=== PATIENT | male | born 1960 | race Caucasian/White ===

== ENCOUNTER 2017-03-13 14:33 | Emergency (ER) | payer SELFPAY ==
[~2017-03-13] VITALS: Ht 180.3 cm; Wt 93.0 kg
[~2017-03-13 14:33] MED LIST: ANDRODERM4 MG/24 HR TD; CIPROFLOXACN500 MG PO; LIPITOR10 MG PO; SUBOXONE1 MI1 SL; TOPROL XL100 MG PO; ZOLOFT25 MG PO
[2017-03-13 15:06] LABS: HEMATOCRIT 47.3 % (39.0-50.0); HEMOGLOBIN 16.1 g/dl (14.0-18.0); IMMATURE GRANULOCYTES 0.4 % (0.0-1.0); MEAN CELL VOLUME 92.9 fL CALC (80.0-100.0); MEAN CORPUSCULAR HGB 31.6 pG CALC (26.0-32.0); NEUT# 4.06 thou/uL (1.82-7.42); RED BLOOD COUNT 5.09 mill/uL (4.70-6.10); RED CELL DISTRI WIDTH 11.7 % (11.5-15.5)
[2017-03-13 15:19] LABS: ALBUMIN 4.7 g/dL (3.2-5.0); ALKALINE PHOSPHATASE 96 u/l (38-126); AMYLASE 62 u/l (30-110); ANION GAP 16 (6-22 (CALC)); BILIRUBIN, TOTAL 0.8 mg/dL (0.0-1.4); BUN 20 mg/dL (9-20); BUN/CREATININE RATIO 22 (12-20 (CALC)); CALCIUM 9.5 mg/dL (8.4-10.2); CARBON DIOXIDE 23 mmol/l (22-30); CHLORIDE 104 mmol/l (95-108); CREATININE 0.9 mg/dL (0.7-1.3); GFR > 60 ML/MIN (>=60 (CALC)); GFR FOR AFR.AMER. > 60 ML/MIN (>=60 (CALC)); GLUCOSE 108 mg/dL (75-110); LIPASE 65 u/l (23-300); POTASSIUM 4.2 mmol/l (3.5-5.1); SGOT/AST 31 u/l (17-59); SGPT/ALT 30 u/l (21-72); SODIUM 138 mmol/l (137-146); TOTAL PROTEIN 7.8 g/dL (6.3-8.2)
[2017-03-13 15:30] LABS: MYOGLOBIN 72 ng/mL (0 - 121)
[2017-03-13 16:16] VITALS: BP 132/68
== END 2017-03-13 16:25 | disposition home or self-care (01) | DRG 392 ==
LOC: ED 14:33
PROVIDERS: Family Medicine
DX: R10.13 Epigastric pain (principal); R11.0 Nausea
CPT/HCPCS: Q9967

== ENCOUNTER 2018-12-07 16:49 | Observation (INO) | payer OTHER ==
[~2018-12-07] VITALS: Ht 180.3 cm; Wt 105.8 kg
[2018-12-07 17:21] LABS: HEMOGLOBIN 14.9 g/dl (14.0-18.0); IMMATURE GRANULOCYTES 1.2 % (0.0-5.0); MEAN CELL VOLUME 89.6 fL CALC (80.0-100.0); MEAN CORPUSCULAR HGB 29.7 pG CALC (26.0-32.0); MEAN CORPUSCULAR HGB CONC 33.1 g/L CALC (32.0-36.0); NEUT# 4.3 thou/uL (1.82-7.42); RED BLOOD COUNT 5.02 mill/uL (4.70-6.10); RED CELL DISTRI WIDTH 12.9 % (11.5-15.5)
[2018-12-07 17:41] LABS: ALBUMIN 5.1 g/dL (3.2-5.0); ALKALINE PHOSPHATASE 107 u/l (38-126); BUN 19 mg/dL (9-20); BUN/CREATININE RATIO 21 (12-20 (CALC)); C-REACTIVE PROTEIN < 0.5 mg/dL (0-0.9); CHLORIDE 98 mmol/l (95-108); CPK 82 u/l (52-200); CREATININE 0.9 mg/dL (0.7-1.3); GFR > 60 ML/MIN (>=60 (CALC)); GFR FOR AFR.AMER. > 60 ML/MIN (>=60 (CALC)); LIPASE 99 u/l (23-300); POTASSIUM 4.4 mmol/l (3.5-5.1); SGOT/AST 27 u/l (17-59); SODIUM 139 mmol/l (137-146); TOTAL PROTEIN 8.5 g/dL (6.3-8.2)
[2018-12-07 17:46] LABS: ANION GAP 15 (6-22 (CALC)); BILIRUBIN, TOTAL 0.3 mg/dL (0.0-1.4); CARBON DIOXIDE 30 mmol/l (22-30)
[2018-12-07 20:20] VITALS: BP 135/91
[2018-12-07 23:55] VITALS: BP 113/63
[2018-12-08 03:55] VITALS: BP 136/85
[2018-12-08 06:37] LABS: CHOLESTEROL HDL RATIO 5.2 (<4.4 (CALC)); MAGNESIUM 1.9 mg/dL (1.6-2.3)
[2018-12-08 08:48] VITALS: BP 127/64
[2018-12-08 11:10] VITALS: BP 139/83
== END 2018-12-08 15:50 | disposition home or self-care (01) | DRG 313 ==
LOC: ED 16:49 → ED-I 18:26 → ED 18:57 → MS2 18:58 → UNDODEPER 12-08 05:44 → MS2 12-08 15:50
PROVIDERS: Emergency Medicine; ADMIT Internal Medicine; ATTEND Internal Medicine
DX: R07.89 Other chest pain (principal); R53.83 Other fatigue; M19.90 Unspecified osteoarthritis, unspecified site; G89.29 Other chronic pain; M54.9 Dorsalgia, unspecified; F17.290 Nicotine dependence, other tobacco product, uncomplicated; Z79.891 Long term (current) use of opiate analgesic
CPT/HCPCS: G0378

== ENCOUNTER 2019-03-27 10:57 | Emergency (ER) | payer OTHER ==
[~2019-03-27] VITALS: Ht 180.3 cm; Wt 120.0 kg
[2019-03-27 11:22] LABS: URINE BILIRUBIN - DIPSTICK NEGATIVE (NEGATIVE); URINE BLOOD DIPSTICK NEGATIVE (NEGATIVE); URINE COLOR YELLOW; URINE GLUCOSE - DIPSTICK NEGATIVE (NEGATIVE); URINE KETONE NEGATIVE (NEGATIVE); URINE LEUK ESTERASE NEGATIVE (NEGATIVE); URINE NITRITE - DIPSTICK NEGATIVE (Negative); URINE PROTEIN - DIPSTICK NEGATIVE (NEG-TRACE); URINE UROBILINOGEN - DIPSTICK 0.2 E.U./dL (0.2)
[2019-03-27 11:26] LABS: HEMATOCRIT 50.3 % (39.0-50.0); HEMOGLOBIN 16.4 g/dl (14.0-18.0); IMMATURE GRANULOCYTES 0.6 % (0.0-5.0); MEAN CELL VOLUME 95.1 fL CALC (80.0-100.0); MEAN CORPUSCULAR HGB CONC 32.6 g/L CALC (32.0-36.0); NEUT# 4.99 thou/uL (1.82-7.42); RED BLOOD COUNT 5.29 mill/uL (4.70-6.10)
[2019-03-27 11:29] VITALS: BP 136/93
[2019-03-27 11:37] LABS: ALBUMIN 4.4 g/dL (3.2-5.0); ALKALINE PHOSPHATASE 84 u/l (38-126); ANION GAP 14 (6-22 (CALC)); BILIRUBIN, TOTAL 0.4 mg/dL (0.0-1.4); BUN 11 mg/dL (9-20); BUN/CREATININE RATIO 13 (12-20 (CALC)); CARBON DIOXIDE 29 mmol/l (22-30); CHLORIDE 99 mmol/l (95-108); CREATININE 0.8 mg/dL (0.7-1.3); GFR > 60 ML/MIN (>=60 (CALC)); GFR FOR AFR.AMER. > 60 ML/MIN (>=60 (CALC)); LIPASE 72 u/l (23-300); SGOT/AST 30 u/l (17-59); SODIUM 137 mmol/l (137-146); TOTAL PROTEIN 7.7 g/dL (6.3-8.2)
[2019-03-27 11:43] LABS: POTASSIUM 5.3 mmol/l (3.5-5.1)
[2019-03-27] MEDS ORDERED: TORADOL PO (12:29)
== END 2019-03-27 12:51 | disposition home or self-care (01) | DRG 552 ==
LOC: ED 10:57
PROVIDERS: Family Medicine
DX: M54.5 Low back pain (principal); N30.90 Cystitis, unspecified without hematuria

== ENCOUNTER 2021-10-27 16:52 | Emergency (ER) | payer OTHER ==
[2021-10-27] VITALS (9 sets, daily range): BP systolic 127–188; BP diastolic 56–113
[~2021-10-27] VITALS: Ht 180.3 cm; Wt 90.9 kg
[~2021-10-27 16:52] MED LIST changes: +TORADOL PO
[2021-10-27 17:35] LABS: HEMATOCRIT 52.2 % (39.0-50.0); HEMOGLOBIN 17.1 g/dl (14.0-18.0); IMMATURE GRANULOCYTES 0.3 % (0.0-5.0); MEAN CELL VOLUME 91.3 fL CALC (80.0-100.0); MEAN CORPUSCULAR HGB 29.9 pG CALC (26.0-32.0); MEAN CORPUSCULAR HGB CONC 32.8 g/dL CAL (32.0-36.0); NEUT# 5.72 thou/uL (1.82-7.42); RED BLOOD COUNT 5.72 mill/uL (4.70-6.10); RED CELL DISTRI WIDTH 12.1 % (11.5-15.5)
[2021-10-27 17:49] LABS: ALBUMIN 4.9 g/dL (3.2-5.0); ALKALINE PHOSPHATASE 124 u/l (38-126); BILIRUBIN, TOTAL 0.4 mg/dL (0.0-1.4); BUN 15 mg/dL (9-20); BUN/CREATININE RATIO 19 (12-20 (CALC)); CARBON DIOXIDE 27 mmol/l (22-30); CHLORIDE 98 mmol/l (95-108); CREATININE 0.8 mg/dL (0.7-1.3); GFR FOR AFR.AMER. > 60 ML/MIN (>=60 (CALC)); GFR OTHER RACES > 60 ML/MIN (>=60 (CALC)); SGOT/AST 39 u/l (17-59); SODIUM 135 mmol/l (137-146)
[2021-10-27 18:02] LABS: MYOGLOBIN 31 ng/mL (0 - 121)
[2021-10-27 18:15] LABS: ANION GAP 15 (6-22 (CALC)); POTASSIUM 5.2 mmol/l (3.5-5.1); TOTAL PROTEIN 9.4 g/dL (6.3-8.2)
[2021-10-27] MEDS ORDERED: NORVASC5 M1 PO (19:53)
== END 2021-10-27 20:47 | disposition home or self-care (01) | DRG 305 ==
LOC: ED 16:52
PROVIDERS: Nurse Practitioner
DX: I10 Essential (primary) hypertension (principal); F17.290 Nicotine dependence, other tobacco product, uncomplicated; Z20.822 Contact with and (suspected) exposure to COVID-19

== ENCOUNTER 2023-05-10 08:26 | Emergency (ER) | payer OTHER ==
[~2023-05-10] VITALS: Ht 180.3 cm; Wt 104.0 kg
[~2023-05-10 08:26] MED LIST changes: +NORVASC5 M1 PO
[2023-05-10 08:34] VITALS: BP 152/93
[2023-05-10 08:46] VITALS: BP 148/85
[2023-05-10 09:01] VITALS: BP 148/92
[2023-05-10] MEDS ORDERED: PREDNISONE50 MG PO (09:12)
[2023-05-10] MEDS ORDERED: VENTOLIN HFA108 MCG PO (09:12)
[2023-05-10] MEDS ORDERED: ZPAK PO (09:12)
[2023-05-10 09:16] VITALS: BP 142/80
[2023-05-10 09:30] VITALS: BP 145/83
[2023-05-10 09:46] VITALS: BP 117/74
[2023-05-10] MEDS ORDERED: NEBULIZER PO (09:47)
[2023-05-10] MEDS ORDERED: IPRATROPIU0.5 MG/3 M IN (09:47)
== END 2023-05-10 09:59 | disposition home or self-care (01) | DRG 153 ==
LOC: ED 08:26
DX: J06.9 Acute upper respiratory infection, unspecified (principal); I10 Essential (primary) hypertension; E11.9 Type 2 diabetes mellitus without complications; E66.9 Obesity, unspecified; F17.200 Nicotine dependence, unspecified, uncomplicated; Z20.822 Contact with and (suspected) exposure to COVID-19